=== PATIENT | female | born 1940 | race Caucasian/White ===

== ENCOUNTER 2020-08-12 03:16 | Inpatient (IN) ==
[2020-08-12] MEDS ORDERED: DILTIAZEM 50 MG/10 ML VIAL IV STA (03:53)
[2020-08-12] MEDS ORDERED: SODIUM CHLORIDE 0.9% 500 ML IV STA (03:53)
[2020-08-12 04:02] LABS: Basophils % 0.1 % (0.0-0.8); Eosinophils % 0.2 % (0.00-10.9); Hematocrit 30.2 VOL% (35.7-47.0); Immature Granulocytes % 0.9 %; Immature Granulocytes Absolute 0.13 #; Lymphocytes # 1.6 10*3/uL (1.4-4.0); Mean Corpuscular HGB Conc 29.8 GM/DL (32-36); Mean Corpuscular Volume 109.8 FL (87-102); Mean Platelet Volume 11.7 FL (9.6-12.0); Monocytes % 11.5 % (1.7-12.7); Neutrophils % 76.3 % (38.7-73.9); Platelet Count 142 T/CUMM (130-400); Red Blood Count 2.75 MC/CUMM (3.8-5.5); Red Cell Distribution Width 18.2 % (9.3-17.3); White Blood Count 14.2 T/CUMM (4-12)
[2020-08-12 04:22] LABS: Hypochromasia 1+; Microcytosis Slight; Platelet Estimate Adequate
[2020-08-12 04:25] LABS: Alanine Aminotransferase 17 U/L (13-56); Albumin 2.6 G/DL (3.4-5.0); Alkaline Phosphatase 93 U/L (45-117); Aspartate Amino Transferase 43 U/L (0-37); Blood Urea Nitrogen 19 MG/DL (7-18); Calcium 8.6 MG/DL (8.5-10.1); Carbon Dioxide 30 MMOL/L (21-32); Estimated Glom Filtration Rate 81 ML/MIN; Ferritin 801.5 ng/ml (8-252); Glucose 101 MG/DL (74-106); Osmolality,Calculated 271.1 MOS/KG (273-304); Potassium 4.3 MMOL/L (3.5-5.1); Sodium 135 MMOL/L (136-145)
[2020-08-12 04:34] LABS: INR 1.4; PT Patient Result 14.4 SECS (9.8-11.9)
[2020-08-12] MEDS ORDERED: MAGNESIUM SULF RIDER 2 GM in PREMIX 1 EACH IV STA (04:35)
[2020-08-12 05:04] LABS: Bacteria,Urine Few /HPF (Few); Bilirubin,Urine Negative (Negative); Blood, Urine Negative (Negative); Glucose,Urine (UA) Negative (Negative); Hyaline Casts,Urine 18 /LPF (0-3); Ketones,Urine 5 mg/dL (Negative); Mucus,Urine Few /LPF (Occasional); Nitrite,Urine Negative (Negative); Protein,Urine 100 MG/DL; RBC,Urine 6 /HPF (0-4); Squamous Epithelial Cell,Urine Many /HPF (0-10); Urine Appearance CLOUDY (Clear); Urine Color Amber (Yellow); Urine Specific Gravity 1.026 (1.001-1.035); Urine Urobilinogen < 2.0 EU/DL (0.2-1.0); WBC,Urine 30 /HPF (0-6)
[2020-08-12] MEDS ORDERED: FUROSEMIDE 40 MG/4 ML VIAL IV STA (05:11)
[2020-08-12] MEDS ORDERED: ONDANSETRON 4 MG/2 ML VIAL IV PRN (05:48)
[2020-08-12] MEDS ORDERED: hydrALAZINE 20 MG/1 ML VIAL IV PRN (05:48)
[2020-08-12] MEDS ORDERED: diphenhydrAMINE CAP 25 MG CAPSULE PO PRN (05:48)
[2020-08-12] MEDS ORDERED: ACETAMINOPHEN 325 MG TABLET PO PRN (05:48)
[2020-08-12] MEDS ORDERED: DEXTROSE 50% 25 GM/50 ML VIAL IV PRN (05:48)
[2020-08-12] MEDS ORDERED: GLUCAGON 1 MG VIAL IM PRN (05:48)
[2020-08-12] MEDS ORDERED: NICOTINE 21 MG/24 HR PATCH TRANSDERM PRN (05:48)
[2020-08-12] MEDS ORDERED: ENOXAPARIN 40 MG/0.4 ML SYRINGE SUBCUT SCH (06:00)
[2020-08-12] MEDS ORDERED: SODIUM CHLORIDE 0.9% 1,000 ML IV SCH (06:00)
[2020-08-12] MEDS: VANCOMYCIN INJ 1,000 MG in SODIUM CHLORIDE 0.9% 250 ML IV SCH (10:24)
[2020-08-12] MEDS: ASCORBIC ACID 500 MG TABLET PO SCH ×3 (10:25→20:48)
[2020-08-12] MEDS: ENOXAPARIN 60 MG/0.6 ML SYRINGE SUBCUT SCH ×3 (10:25→20:49)
[2020-08-12] MEDS: DEXAMETHASONE 4 MG/1 ML VIAL IV SCH (10:26)
[2020-08-12] MEDS: ZINC GLUCONATE 50 MG TABLET PO SCH (10:26)
[2020-08-12] MEDS: CETIRIZINE 10 MG TABLET PO SCH (10:26)
[2020-08-12] MEDS: CHOLECALCIFEROL 1,000 UNIT TABLET PO SCH (10:26)
[2020-08-12] MEDS: FAMOTIDINE 20 MG TABLET PO SCH ×3 (10:27→20:48)
[2020-08-12] MEDS ORDERED: REMDESIVIR 200 MG in SODIUM CHLORIDE 0.9% 210 ML IV ONE (11:00)
[2020-08-12] MEDS: DESITIN 4OZ/NYSTATIN 15 GRAM MIXTURE PASTE TOP SCH ×3 (11:54→20:48)
[2020-08-12] MEDS: AZTREONAM 1,000 MG in SODIUM CHLORIDE 0.9% 100 ML IV SCH ×3 (13:26→20:49)
[2020-08-12] MEDS ORDERED: SODIUM CHLORIDE 0.9% 1,000 ML IV PRN (14:16)
[2020-08-13 05:45] LABS: Basophils % 0.1 % (0.0-0.8); Hemoglobin 8.8 GM/DL (12.0-16.0); Immature Granulocytes % 1.3 %; Immature Granulocytes Absolute 0.11 #; Lymphocytes # 0.9 10*3/uL (1.4-4.0); Lymphocytes % 10.6 % (21.3-54.2); Mean Corpuscular HGB Conc 30.3 GM/DL (32-36); Mean Corpuscular Volume 109.8 FL (87-102); Mean Platelet Volume 11.6 FL (9.6-12.0); Monocytes % 10.3 % (1.7-12.7); Neutrophils % 77.7 % (38.7-73.9); Platelet Count 143 T/CUMM (130-400); Red Blood Count 2.64 MC/CUMM (3.8-5.5); Red Cell Distribution Width 17.8 % (9.3-17.3); White Blood Count 8.6 T/CUMM (4-12)
[2020-08-13 06:12] LABS: Osmolality,Calculated 271.1 MOS/KG (273-304); Potassium 2.9 MMOL/L (3.5-5.1)
[2020-08-13 08:56] LABS: Folate 18.5 NG/ML (5.38-24.0); Vitamin B12 > 2000 PG/ML (211-911)
[2020-08-13] MEDS: REMDESIVIR 100 MG in SODIUM CHLORIDE 0.9% 100 ML IV SCH (09:02)
[2020-08-13] MEDS: CHOLECALCIFEROL 1,000 UNIT TABLET PO SCH (09:02)
[2020-08-13] MEDS: AZITHROMYCIN 250 MG TABLET PO SCH (09:03)
[2020-08-13] MEDS: FAMOTIDINE 20 MG TABLET PO SCH ×3 (09:03→20:42)
[2020-08-13] MEDS: ZINC GLUCONATE 50 MG TABLET PO SCH (09:03)
[2020-08-13] MEDS: CETIRIZINE 10 MG TABLET PO SCH (09:03)
[2020-08-13] MEDS: POTASSIUM CHLORIDE 20 MEQ TABLET PO SCH ×3 (09:03→20:42)
[2020-08-13] MEDS: DESITIN 4OZ/NYSTATIN 15 GRAM MIXTURE PASTE TOP SCH ×3 (09:03→20:43)
[2020-08-13] MEDS: DEXAMETHASONE 4 MG/1 ML VIAL IV SCH (09:03)
[2020-08-13] MEDS: ASCORBIC ACID 500 MG TABLET PO SCH ×3 (09:03→20:43)
[2020-08-13] MEDS: ENOXAPARIN 60 MG/0.6 ML SYRINGE SUBCUT SCH ×3 (09:03→20:43)
[2020-08-13 09:10] LABS: Ferritin 732.3 ng/ml (8-252)
[2020-08-13] MEDS: VANCOMYCIN INJ 1,000 MG in SODIUM CHLORIDE 0.9% 250 ML IV SCH (10:30)
[2020-08-13] MEDS: AZTREONAM 1,000 MG in SODIUM CHLORIDE 0.9% 100 ML IV SCH ×3 (12:10→20:43)
[2020-08-13] MEDS: DILTIAZEM 60 MG TABLET PO SCH ×3 (14:05→20:42)
[2020-08-13] MEDS ORDERED: DILTIAZEM 90 MG TABLET PO SCH (15:00)
[2020-08-13] MEDS: MELATONIN 3 MG TABLET PO PRN (19:57)
[2020-08-14 05:28] LABS: Hemoglobin 7.9 GM/DL (12.0-16.0); Immature Granulocytes % 1.1 %; Immature Granulocytes Absolute 0.13 #; Lymphocytes # 0.9 10*3/uL (1.4-4.0); Lymphocytes % 7.9 % (21.3-54.2); Mean Corpuscular HGB Conc 31.6 GM/DL (32-36); Mean Corpuscular Volume 107.3 FL (87-102); Mean Platelet Volume 12.1 FL (9.6-12.0); Monocytes % 11.8 % (1.7-12.7); Neutrophils % 79.2 % (38.7-73.9); Platelet Count 132 T/CUMM (130-400); Red Blood Count 2.33 MC/CUMM (3.8-5.5); Red Cell Distribution Width 17.7 % (9.3-17.3); White Blood Count 11.5 T/CUMM (4-12)
[2020-08-14 05:48] LABS: Albumin 2.3 G/DL (3.4-5.0); Bilirubin,Total 0.5 MG/DL (0.2-1.0); Calcium 7.9 MG/DL (8.5-10.1); Osmolality,Calculated 270.5 MOS/KG (273-304); Potassium 3.8 MMOL/L (3.5-5.1); Total Protein 6.9 G/DL (6.4-8.3)
[2020-08-14 05:55] LABS: Calcium 7.9 MG/DL (8.5-10.1); Osmolality,Calculated 276.1 MOS/KG (273-304); Potassium 3.6 MMOL/L (3.5-5.1)
[2020-08-14] MEDS: MORPHINE 4 MG/1 ML VIAL IV PRN ×2 (06:03→10:04)
[2020-08-14 06:25] LABS: Anisocytosis 1+; Hypochromasia 1+; Polychromasia Slight
[2020-08-14 06:26] LABS: Platelet Estimate Adequate
[2020-08-14] MEDS: AZTREONAM 1,000 MG in SODIUM CHLORIDE 0.9% 100 ML IV SCH ×2 (09:05→21:23)
[2020-08-14] MEDS: DEXAMETHASONE 4 MG/1 ML VIAL IV SCH (09:05)
[2020-08-14] MEDS: POTASSIUM CHLORIDE 20 MEQ TABLET PO SCH (09:06)
[2020-08-14] MEDS: PANTOPRAZOLE 40 MG TABLET PO SCH (09:06)
[2020-08-14] MEDS: ZINC GLUCONATE 50 MG TABLET PO SCH (09:06)
[2020-08-14] MEDS: ENOXAPARIN 60 MG/0.6 ML SYRINGE SUBCUT SCH ×2 (09:06→21:23)
[2020-08-14] MEDS: CHOLECALCIFEROL 1,000 UNIT TABLET PO SCH (09:06)
[2020-08-14] MEDS: DILTIAZEM 60 MG TABLET PO SCH ×3 (09:06→21:22)
[2020-08-14] MEDS: AZITHROMYCIN 250 MG TABLET PO SCH (09:07)
[2020-08-14] MEDS: ASCORBIC ACID 500 MG TABLET PO SCH ×2 (09:07→21:22)
[2020-08-14] MEDS: CETIRIZINE 10 MG TABLET PO SCH (09:07)
[2020-08-14] MEDS: REMDESIVIR 100 MG in SODIUM CHLORIDE 0.9% 100 ML IV SCH (09:59)
[2020-08-14] MEDS: DESITIN 4OZ/NYSTATIN 15 GRAM MIXTURE PASTE TOP SCH ×2 (09:59→21:23)
[2020-08-14] MEDS: VANCOMYCIN INJ 1,000 MG in SODIUM CHLORIDE 0.9% 250 ML IV SCH (09:59)
[2020-08-14] MEDS ORDERED: FERRIC GLUCONATE COMPLEX 125 MG in SODIUM CHLORIDE 0.9% 100 ML IV ONE (11:00)
[2020-08-14] MEDS: guaiFENesin/DM ER 600-30 MG TABLET PO PRN (21:22)
[2020-08-14] MEDS: MELATONIN 3 MG TABLET PO PRN (21:22)
[2020-08-15 05:43] LABS: Hematocrit 24.5 VOL% (35.7-47.0); Hemoglobin 7.3 GM/DL (12.0-16.0); Immature Granulocytes % 2.2 %; Immature Granulocytes Absolute 0.23 #; Lymphocytes # 0.8 10*3/uL (1.4-4.0); Lymphocytes % 7.3 % (21.3-54.2); Mean Corpuscular HGB Conc 29.8 GM/DL (32-36); Mean Corpuscular Volume 112.4 FL (87-102); Monocytes % 8.3 % (1.7-12.7); Neutrophils % 82.2 % (38.7-73.9); Platelet Count 128 T/CUMM (130-400); Red Blood Count 2.18 MC/CUMM (3.8-5.5); Red Cell Distribution Width 17.8 % (9.3-17.3); White Blood Count 10.6 T/CUMM (4-12)
[2020-08-15 05:57] LABS: Osmolality,Calculated 268.4 MOS/KG (273-304); Potassium 3.7 MMOL/L (3.5-5.1)
[2020-08-15] MEDS: ZINC GLUCONATE 50 MG TABLET PO SCH (09:00)
[2020-08-15] MEDS: CHOLECALCIFEROL 1,000 UNIT TABLET PO SCH (09:00)
[2020-08-15] MEDS: AZITHROMYCIN 250 MG TABLET PO SCH (09:00)
[2020-08-15] MEDS: CETIRIZINE 10 MG TABLET PO SCH (09:00)
[2020-08-15] MEDS: DILTIAZEM 60 MG TABLET PO SCH ×3 (09:00→21:43)
[2020-08-15] MEDS: DEXAMETHASONE 4 MG/1 ML VIAL IV SCH (09:00)
[2020-08-15] MEDS: ASCORBIC ACID 500 MG TABLET PO SCH ×2 (09:00→21:43)
[2020-08-15] MEDS: PANTOPRAZOLE 40 MG TABLET PO SCH (09:00)
[2020-08-15] MEDS: DESITIN 4OZ/NYSTATIN 15 GRAM MIXTURE PASTE TOP SCH ×2 (09:00→21:44)
[2020-08-15] MEDS: AZTREONAM 1,000 MG in SODIUM CHLORIDE 0.9% 100 ML IV SCH ×2 (09:01→21:44)
[2020-08-15] MEDS: MORPHINE 4 MG/1 ML VIAL IV PRN (09:19)
[2020-08-15] MEDS ORDERED: METOPROLOL TARTRATE 5 MG/5 ML VIAL IV ONE (09:39)
[2020-08-15] MEDS: REMDESIVIR 100 MG in SODIUM CHLORIDE 0.9% 100 ML IV SCH (10:44)
[2020-08-15] MEDS: ENOXAPARIN 40 MG/0.4 ML SYRINGE SUBCUT SCH ×2 (10:44→21:43)
[2020-08-15] MEDS: FERRIC GLUCONATE COMPLEX 125 MG in SODIUM CHLORIDE 0.9% 100 ML IV SCH (10:44)
[2020-08-15 12:02] LABS: Hematocrit 23.9 VOL% (35.7-47.0); Hemoglobin 7.3 GM/DL (12.0-16.0)
[2020-08-15] MEDS ORDERED: SODIUM CHLORIDE 0.9% 1,000 ML IV PRN (12:06)
[2020-08-15] MEDS ORDERED: POLYETHYLENE GLYCOL POWDER 17 GM PACK PO PRN (12:09)
[2020-08-15] MEDS: DOCUSATE SODIUM 100 MG CAPSULE PO SCH ×2 (13:22→21:43)
[2020-08-15] MEDS: carvediloL 6.25 MG TABLET PO SCH (21:43)
[2020-08-15] MEDS: guaiFENesin/DM ER 600-30 MG TABLET PO PRN (21:43)
[2020-08-15] MEDS: MELATONIN 3 MG TABLET PO PRN (23:20)
[2020-08-16] MEDS ORDERED: METOPROLOL TARTRATE 5 MG/5 ML VIAL IV ONE ×2 (04:45→16:14)
[2020-08-16 05:54] LABS: Basophils % 0.1 % (0.0-0.8); Hematocrit 28.1 VOL% (35.7-47.0); Immature Granulocytes % 2.6 %; Immature Granulocytes Absolute 0.36 #; Lymphocytes # 0.8 10*3/uL (1.4-4.0); Lymphocytes % 5.8 % (21.3-54.2); Mean Corpuscular HGB Conc 32.4 GM/DL (32-36); Mean Corpuscular Volume 103.3 FL (87-102); Mean Platelet Volume 12.1 FL (9.6-12.0); Monocytes % 9.3 % (1.7-12.7); Neutrophils % 82.2 % (38.7-73.9); Platelet Count 134 T/CUMM (130-400); Red Cell Distribution Width 18.2 % (9.3-17.3)
[2020-08-16 05:55] LABS: Red Blood Count 2.72 MC/CUMM (3.8-5.5)
[2020-08-16 05:56] LABS: Hemoglobin 9.1 GM/DL (12.0-16.0)
[2020-08-16 06:15] LABS: Osmolality,Calculated 276.1 MOS/KG (273-304); Potassium 3.8 MMOL/L (3.5-5.1)
[2020-08-16 06:16] LABS: Band Neutrophils 1 % (0-10); Hypochromasia 1+; Lymphocytes 5 % (20-55); Microcytosis 1+; Platelet Estimate Adequate; Segmented Neutrophils 81 % (50-85); Total Cells Counted 100
[2020-08-16] MEDS: DEXAMETHASONE 4 MG/1 ML VIAL IV SCH (08:34)
[2020-08-16] MEDS: AZTREONAM 1,000 MG in SODIUM CHLORIDE 0.9% 100 ML IV SCH ×2 (08:37→21:33)
[2020-08-16] MEDS: FERRIC GLUCONATE COMPLEX 125 MG in SODIUM CHLORIDE 0.9% 100 ML IV SCH (09:08)
[2020-08-16] MEDS: DILTIAZEM 60 MG TABLET PO SCH ×3 (10:16→21:31)
[2020-08-16] MEDS: carvediloL 6.25 MG TABLET PO SCH ×2 (11:05→21:32)
[2020-08-16] MEDS: DOCUSATE SODIUM 100 MG CAPSULE PO SCH ×2 (11:05→21:31)
[2020-08-16] MEDS: ENOXAPARIN 40 MG/0.4 ML SYRINGE SUBCUT SCH ×2 (11:05→21:32)
[2020-08-16] MEDS: PANTOPRAZOLE 40 MG TABLET PO SCH (11:05)
[2020-08-16] MEDS: CHOLECALCIFEROL 1,000 UNIT TABLET PO SCH (11:06)
[2020-08-16] MEDS: ZINC GLUCONATE 50 MG TABLET PO SCH (11:06)
[2020-08-16] MEDS: AZITHROMYCIN 250 MG TABLET PO SCH (11:06)
[2020-08-16] MEDS: CETIRIZINE 10 MG TABLET PO SCH (11:06)
[2020-08-16] MEDS: ASCORBIC ACID 500 MG TABLET PO SCH ×2 (11:06→21:32)
[2020-08-16] MEDS: DESITIN 4OZ/NYSTATIN 15 GRAM MIXTURE PASTE TOP SCH ×2 (11:14→21:32)
[2020-08-16] MEDS: REMDESIVIR 100 MG in SODIUM CHLORIDE 0.9% 100 ML IV SCH (11:45)
[2020-08-16] MEDS ORDERED: KETOROLAC 15 MG/1 ML VIAL IV ONE (12:02)
[2020-08-16] MEDS: guaiFENesin/DM ER 600-30 MG TABLET PO PRN (21:31)
[2020-08-16] MEDS: MELATONIN 3 MG TABLET PO PRN (21:32)
[2020-08-17 05:31] LABS: Basophils % 0.1 % (0.0-0.8); Hematocrit 22.8 VOL% (35.7-47.0); Hemoglobin 7.3 GM/DL (12.0-16.0); Immature Granulocytes % 2.5 %; Immature Granulocytes Absolute 0.36 #; Mean Corpuscular Volume 104.1 FL (87-102); Mean Platelet Volume 12.5 FL (9.6-12.0); Monocytes % 8.4 % (1.7-12.7); NRBC # 0.03 10*3/uL; Platelet Count 142 T/CUMM (130-400); Red Blood Count 2.19 MC/CUMM (3.8-5.5); White Blood Count 14.6 T/CUMM (4-12)
[2020-08-17 05:38] LABS: Calcium 7.8 MG/DL (8.5-10.1); Osmolality,Calculated 279.1 MOS/KG (273-304); Potassium 3.3 MMOL/L (3.5-5.1)
[2020-08-17] MEDS ORDERED: MAGNESIUM SULF RIDER 2 GM in PREMIX 1 EACH IV PRN (06:30)
[2020-08-17] MEDS ORDERED: MAGNESIUM SULF RIDER 4 GM in PREMIX 1 EACH IV PRN (06:30)
[2020-08-17] MEDS ORDERED: PROMETHAZINE 25 MG/1 ML VIAL IM ONE (07:30)
[2020-08-17] MEDS ORDERED: MEPERIDINE 50 MG/1 ML VIAL IM ONE (07:30)
[2020-08-17] MEDS ORDERED: LIDOCAINE 1% 20 ML VIAL MISC INJ ONE (08:00)
[2020-08-17] MEDS ORDERED: MIDAZOLAM 2 MG/2 ML VIAL IV ONE (08:00)
[2020-08-17] MEDS ORDERED: LIDOCAINE 2% VISCOUS 100 ML BOTTLE SWISH/SPIT ONE (08:00)
[2020-08-17] MEDS ORDERED: LIDOCAINE 2% 20 ML VIAL RESP TX ONE (08:00)
[2020-08-17] MEDS: DEXAMETHASONE 4 MG/1 ML VIAL IV SCH (09:20)
[2020-08-17] MEDS: AZTREONAM 1,000 MG in SODIUM CHLORIDE 0.9% 100 ML IV SCH ×2 (09:25→21:43)
[2020-08-17] MEDS: FERRIC GLUCONATE COMPLEX 125 MG in SODIUM CHLORIDE 0.9% 100 ML IV SCH (10:00)
[2020-08-17] MEDS: DESITIN 4OZ/NYSTATIN 15 GRAM MIXTURE PASTE TOP SCH ×2 (10:43→21:44)
[2020-08-17] MEDS: carvediloL 6.25 MG TABLET PO SCH ×2 (11:20→21:43)
[2020-08-17] MEDS: CETIRIZINE 10 MG TABLET PO SCH (11:20)
[2020-08-17] MEDS: CHOLECALCIFEROL 1,000 UNIT TABLET PO SCH (11:20)
[2020-08-17] MEDS: DOCUSATE SODIUM 100 MG CAPSULE PO SCH ×2 (11:20→21:44)
[2020-08-17] MEDS: ZINC GLUCONATE 50 MG TABLET PO SCH (11:20)
[2020-08-17] MEDS: ASCORBIC ACID 500 MG TABLET PO SCH ×2 (11:20→21:43)
[2020-08-17] MEDS: DILTIAZEM 60 MG TABLET PO SCH ×3 (11:20→21:44)
[2020-08-17] MEDS: PANTOPRAZOLE 40 MG TABLET PO SCH (11:20)
[2020-08-17] MEDS: ENOXAPARIN 40 MG/0.4 ML SYRINGE SUBCUT SCH (11:27)
[2020-08-17] MEDS: POTASSIUM CHLORIDE RIDER 10 MEQ in PREMIX 1 EACH IV PRN ×4 (13:20→17:15)
[2020-08-17 16:01] LABS: Hematocrit 21.6 VOL% (35.7-47.0); Hemoglobin 6.7 GM/DL (12.0-16.0)
[2020-08-17] MEDS: MELATONIN 3 MG TABLET PO PRN (21:44)
[2020-08-17 23:43] LABS: Hematocrit 24.1 VOL% (35.7-47.0); Hemoglobin 7.3 GM/DL (12.0-16.0)
[2020-08-18 06:10] LABS: Basophils % 0.1 % (0.0-0.8); Hematocrit 24.6 VOL% (35.7-47.0); Hemoglobin 7.8 GM/DL (12.0-16.0); Immature Granulocytes % 2.2 %; Lymphocytes # 0.8 10*3/uL (1.4-4.0); Lymphocytes % 4.2 % (21.3-54.2); Mean Corpuscular HGB Conc 31.7 GM/DL (32-36); Mean Corpuscular Volume 103.4 FL (87-102); Mean Platelet Volume 12.7 FL (9.6-12.0); Neutrophils % 82.5 % (38.7-73.9); Platelet Count 106 T/CUMM (130-400); Red Blood Count 2.38 MC/CUMM (3.8-5.5); White Blood Count 18.4 T/CUMM (4-12)
[2020-08-18 06:28] LABS: Calcium 7.8 MG/DL (8.5-10.1); Potassium 4.3 MMOL/L (3.5-5.1)
[2020-08-18 06:33] LABS: Band Neutrophils 2 % (0-10); Hypochromasia 1+; Lymphocytes 5 % (20-55); Myelocytes 1 %; Segmented Neutrophils 82 % (50-85); Total Cells Counted 100
[2020-08-18 06:34] LABS: Microcytosis 1+; Platelet Estimate Adequate; Polychromasia Slight
[2020-08-18] MEDS: FERRIC GLUCONATE COMPLEX 125 MG in SODIUM CHLORIDE 0.9% 100 ML IV SCH (08:27)
[2020-08-18] MEDS: CHOLECALCIFEROL 1,000 UNIT TABLET PO SCH ×2 (08:28→09:39)
[2020-08-18] MEDS: PANTOPRAZOLE 40 MG TABLET PO SCH ×2 (08:28→09:39)
[2020-08-18] MEDS: ASCORBIC ACID 500 MG TABLET PO SCH ×3 (08:28→22:01)
[2020-08-18] MEDS: ZINC GLUCONATE 50 MG TABLET PO SCH ×2 (08:28→09:39)
[2020-08-18] MEDS: DEXAMETHASONE 4 MG/1 ML VIAL IV SCH (08:28)
[2020-08-18] MEDS: DILTIAZEM 60 MG TABLET PO SCH ×5 (08:28→22:07)
[2020-08-18] MEDS: carvediloL 6.25 MG TABLET PO SCH ×4 (08:29→22:07)
[2020-08-18] MEDS: DOCUSATE SODIUM 100 MG CAPSULE PO SCH ×3 (08:29→22:02)
[2020-08-18] MEDS: DESITIN 4OZ/NYSTATIN 15 GRAM MIXTURE PASTE TOP SCH ×2 (08:29→22:02)
[2020-08-18] MEDS: CETIRIZINE 10 MG TABLET PO SCH ×2 (08:29→09:38)
[2020-08-18] MEDS: ENOXAPARIN 40 MG/0.4 ML SYRINGE SUBCUT SCH (08:29)
[2020-08-18] MEDS: AZTREONAM 1,000 MG in SODIUM CHLORIDE 0.9% 100 ML IV SCH ×2 (08:32→22:09)
[2020-08-18] MEDS: NYSTATIN 500,000 UNIT/5 ML UDCUP SWISH/SWAL SCH ×2 (16:05→22:02)
[2020-08-19 05:24] LABS: Basophils % 0.2 % (0.0-0.8); Eosinophils % 0.1 % (0.00-10.9); Hematocrit 25.9 VOL% (35.7-47.0); Immature Granulocytes % 3.3 %; Lymphocytes # 0.7 10*3/uL (1.4-4.0); Mean Corpuscular HGB Conc 30.9 GM/DL (32-36); Mean Corpuscular Volume 104.9 FL (87-102); Monocytes % 7.8 % (1.7-12.7); Neutrophils % 84.6 % (38.7-73.9); Platelet Count 118 T/CUMM (130-400); Red Blood Count 2.47 MC/CUMM (3.8-5.5); Red Cell Distribution Width 19.1 % (9.3-17.3); White Blood Count 18.3 T/CUMM (4-12)
[2020-08-19 05:44] LABS: Hypochromasia 1+; Lymphocytes 2 % (20-55); Nucleated Red Blood Cells 1 (0-5); Segmented Neutrophils 91 % (50-85); Total Cells Counted 100
[2020-08-19 05:45] LABS: Microcytosis 1+; Platelet Estimate Adequate; Polychromasia Slight
[2020-08-19 05:50] LABS: Calcium 7.9 MG/DL (8.5-10.1); Osmolality,Calculated 268.2 MOS/KG (273-304)
[2020-08-19] MEDS: DEXAMETHASONE 4 MG/1 ML VIAL IV SCH (08:34)
[2020-08-19] MEDS: AZTREONAM 1,000 MG in SODIUM CHLORIDE 0.9% 100 ML IV SCH (08:34)
[2020-08-19] MEDS: FERRIC GLUCONATE COMPLEX 125 MG in SODIUM CHLORIDE 0.9% 100 ML IV SCH (08:34)
[2020-08-19] MEDS: DESITIN 4OZ/NYSTATIN 15 GRAM MIXTURE PASTE TOP SCH ×2 (08:36→21:11)
[2020-08-19] MEDS: PANTOPRAZOLE 40 MG TABLET PO SCH (08:36)
[2020-08-19] MEDS: ZINC GLUCONATE 50 MG TABLET PO SCH (08:36)
[2020-08-19] MEDS: DOCUSATE SODIUM 100 MG CAPSULE PO SCH ×2 (08:36→21:10)
[2020-08-19] MEDS: ASCORBIC ACID 500 MG TABLET PO SCH ×2 (08:36→21:10)
[2020-08-19] MEDS: ENOXAPARIN 40 MG/0.4 ML SYRINGE SUBCUT SCH (08:36)
[2020-08-19] MEDS: CHOLECALCIFEROL 1,000 UNIT TABLET PO SCH (08:36)
[2020-08-19] MEDS: NYSTATIN 500,000 UNIT/5 ML UDCUP SWISH/SWAL SCH ×3 (08:36→21:10)
[2020-08-19] MEDS: carvediloL 6.25 MG TABLET PO SCH ×3 (08:36→21:15)
[2020-08-19] MEDS: DILTIAZEM 60 MG TABLET PO SCH ×3 (08:36→21:15)
[2020-08-19] MEDS: CETIRIZINE 10 MG TABLET PO SCH (08:36)
[2020-08-19] MEDS: MELATONIN 3 MG TABLET PO PRN (21:11)
[2020-08-19] MEDS: guaiFENesin/DM ER 600-30 MG TABLET PO PRN (21:11)
[2020-08-20 08:31] LABS: Basophils % 0.2 % (0.0-0.8); Hematocrit 27.2 VOL% (35.7-47.0); Hemoglobin 8.8 GM/DL (12.0-16.0); Immature Granulocytes % 4.5 %; Immature Granulocytes Absolute 0.73 #; Lymphocytes # 1.1 10*3/uL (1.4-4.0); Lymphocytes % 6.8 % (21.3-54.2); Mean Corpuscular HGB Conc 32.4 GM/DL (32-36); Mean Platelet Volume 11.5 FL (9.6-12.0); Monocytes % 10.7 % (1.7-12.7); Neutrophils % 77.8 % (38.7-73.9); Platelet Count 147 T/CUMM (130-400); Red Blood Count 2.64 MC/CUMM (3.8-5.5); Red Cell Distribution Width 18.9 % (9.3-17.3); White Blood Count 16.2 T/CUMM (4-12)
[2020-08-20 08:52] LABS: Calcium 7.9 MG/DL (8.5-10.1); Osmolality,Calculated 262.5 MOS/KG (273-304); Potassium 3.7 MMOL/L (3.5-5.1)
[2020-08-20 08:55] LABS: Band Neutrophils 1 % (0-10); Hypochromasia 2+; Lymphocytes 4 % (20-55); Microcytosis 1+; Platelet Estimate Adequate; Segmented Neutrophils 80 % (50-85); Total Cells Counted 100
[2020-08-20] MEDS: DEXAMETHASONE 4 MG/1 ML VIAL IV SCH (09:37)
[2020-08-20] MEDS: CHOLECALCIFEROL 1,000 UNIT TABLET PO SCH (09:41)
[2020-08-20] MEDS: DOCUSATE SODIUM 100 MG CAPSULE PO SCH (09:41)
[2020-08-20] MEDS: CETIRIZINE 10 MG TABLET PO SCH (09:41)
[2020-08-20] MEDS: NYSTATIN 500,000 UNIT/5 ML UDCUP SWISH/SWAL SCH ×2 (09:41→15:34)
[2020-08-20] MEDS: FERRIC GLUCONATE COMPLEX 125 MG in SODIUM CHLORIDE 0.9% 100 ML IV SCH (09:41)
[2020-08-20] MEDS: DILTIAZEM 60 MG TABLET PO SCH ×2 (09:41→17:18)
[2020-08-20] MEDS: PANTOPRAZOLE 40 MG TABLET PO SCH (09:41)
[2020-08-20] MEDS: carvediloL 6.25 MG TABLET PO SCH (09:41)
[2020-08-20] MEDS: DESITIN 4OZ/NYSTATIN 15 GRAM MIXTURE PASTE TOP SCH (09:41)
[2020-08-20] MEDS: ZINC GLUCONATE 50 MG TABLET PO SCH (09:41)
[2020-08-20] MEDS: ASCORBIC ACID 500 MG TABLET PO SCH (09:41)
[2020-08-20] MEDS: ENOXAPARIN 40 MG/0.4 ML SYRINGE SUBCUT SCH (10:28)
[2020-08-20] MEDS: POTASSIUM CHLORIDE RIDER 10 MEQ in PREMIX 1 EACH IV PRN ×2 (11:13→15:34)
[2020-08-20 17:19] VITALS: BP 132/66
[2020-08-20] MEDS ORDERED: LINEZOLID 600 MG TABLET PO SCH (21:00)
[2020-08-21] MEDS ORDERED: predniSONE 20 MG TABLET PO SCH (09:00)
== END 2020-08-20 18:13 | disposition home health service (06) | DRG 177 ==
LOC: EDUNIT# → EDBD → N.ED 03:16 → SUATTDRO 05:48 → N.EDINP 05:48 → N.2E 07:58
PROVIDERS: ADMIT Internal Medicine; ATTEND Internal Medicine